=== PATIENT | male | born 1970 | race African-American/Black ===

== ENCOUNTER 2017-03-14 18:37 | Emergency (ER) | payer OTHER ==
[~2017-03-14] VITALS: Ht 188 cm; Wt 95.3 kg
[2017-03-14 19:39] LABS: Basophils # (auto) 0 uL; Basophils % (auto) 0.3 % (0.0-2.0); Lymphocytes # (auto) 0.6 uL; Monocytes # (auto) 0.3 uL; White Blood Cell 5.6 10^3/uL (4.4-10.8)
[2017-03-14 19:41] LABS: Eosinophils # (auto) 0.1 uL; Hematocrit 24.6 % (41.0-53.0); Hemoglobin 8.5 g/dL (13.5-17.5); Lymphocytes % (auto) 10.2 % (10.0-50.0); Mean Corpuscular Hemoglobin 29.3 pg (28.0-32.0); Mean Corpuscular Hgb Conc. 34.6 g/dL (32.0-36.0); Mean Corpuscular Volume 84.7 fL (80.0-100.0); Mean Platelet Volume 6.9 fL (6.9-10.8); Monocytes % (auto) 4.9 % (0.0-12.0); Neutrophils # (auto) 4.7 uL; Neutrophils % (auto) 83.6 % (37.0-80.0); Nucleated Red Blood Cells % 0.1 %; Platelet Count (auto) 185 10^3/uL (140-450); Red Cell Distribution Width 13.7 % (11.8-14.3)
[2017-03-14 19:59] LABS: Albumin 2.7 g/dL (3.4-5.0); Calcium 7.8 mg/dL (8.5-10.1); Potassium 4.4 mmol/L (3.5-5.1)
[2017-03-14 20:06] LABS: BUN/Creatinine Ratio 4.5; Bilirubin, Total 0.3 mg/dL (0.2-1.0)
[2017-03-14] MEDS ORDERED: LABETALOL HCL 5 MG/ML 4ML SYRINGE IV ONE ×2 (20:15→22:15)
[2017-03-14] MEDS ORDERED: LABETALOL HCL 5 MG/ML ML 20ML VIAL IV ONE ×2 (20:15→22:04)
[2017-03-14 20:39] LABS: Urine Bilirubin Negative (Negative); Urine Blood 1+ /uL (Negative); Urine Color Yellow (Yellow); Urine Glucose TRACE mg/dL (Normal); Urine Ketone Negative (Negative); Urine Nitrite Negative (Negative); Urine RBC 24 /hpf (0 - 3); Urine Sperm PRESENT /hpf (None Seen); Urine Squamous Epithelial Cell FEW /hpf (<5); Urine Urobilinogen Normal (Negative); Urine pH 6.5 (5.0-8.0)
[2017-03-14] MEDS ORDERED: cloNIDine HCL 0.1 MG TAB ONE (20:42)
[2017-03-14] MEDS ORDERED: cloNIDine HCL 0.1 MG TAB PO ONE (20:45)
[2017-03-14] MEDS ORDERED: SODIUM CHLORIDE 0.9% 1,000 ML IV ONE (20:58)
[2017-03-14] MEDS ORDERED: ENOXAPARIN SOD 100 MG/1 ML SYRINGE SC ONE (21:00)
[2017-03-14] MEDS ORDERED: cefTRIAXone 1GM/50ML D5W 50 ML IV ONE (21:15)
[2017-03-14 22:01] LABS: B-Type Natriuretic Peptide 517.78 pg/mL (0-100)
[2017-03-14 22:11] LABS: Temperature: 23.1 C (20.0-25.0)
[2017-03-14] MEDS ORDERED: hydrALAZINE HCL 20 MG/ML VL IV ONE (22:45)
[2017-03-15 01:35] VITALS: BP 149/92
== END 2017-03-15 01:43 | disposition short-term general hospital (02) ==
LOC: ER 18:44
DX: I13.0 Hypertensive heart and chronic kidney disease with heart failure and stage 1 through stage 4 chronic kidney disease, or unspecified chronic kidney disease (principal); E11.22 Type 2 diabetes mellitus with diabetic chronic kidney disease; N18.9 Chronic kidney disease, unspecified; I50.9 Heart failure, unspecified; N39.0 Urinary tract infection, site not specified; R79.89 Other specified abnormal findings of blood chemistry
CPT/HCPCS: 36415; 70450; 71010; 72125; 80053; 81001; 83735; 83880; 84484; 85025; 93005; 96361; 96365; 96372; 96375; 96376; 99285; J0360; J0696; J1650